=== PATIENT | female | born 1990 | race Caucasian/White ===

== ENCOUNTER 2018-05-03 06:07 | Inpatient (IN) ==
[2018-05-03] MEDS ORDERED: OXYTOCIN/DEXTROSE 5%-WATER 30 UNITS/500 ML BAG IV ONE ×2 (06:12→16:50)
[2018-05-03] MEDS ORDERED: NALBUPHINE HCL 10 MG/ML AMPUL IV PRN ×2 (06:12)
[2018-05-03] MEDS ORDERED: LIDOCAINE HCL 50 ML VIAL PERI PRN (06:12)
[2018-05-03] MEDS ORDERED: RINGER'S SOLUTION,LACTATED 1,000 ML IV ONE (06:12)
[2018-05-03] MEDS ORDERED: ONDANSETRON HCL/PF 2 MG/ML VIAL IV PRN ×2 (06:12→10:33)
[2018-05-03] MEDS: RINGER'S SOLUTION,LACTATED 1,000 ML IV PRN ×2 (06:45→16:05)
[2018-05-03 07:04] LABS: Cocaine Ur Negative (NEGATIVE); Urine Barbiturate Negative (NEGATIVE); Urine Benzodiazepines Negative (NEGATIVE); Urine Opiates Negative (NEGATIVE); Urine PCP Negative (NEGATIVE); Urine THC Negative (NEGATIVE)
--- NOTE | 2018-05-03 07:47 | HP ---
Chief Complaint - Chief Complaint Date of Service: 05/03/18 Time of Service: 07:39 Chief Complaint: Pt presents for induction of labor History of Present Illness: The patient presents for an elective IOL. Pt denies vb, lof. She reports irregular ctx. Fetus is active. Medical History (Last Reviewed 02/22/18 @ 10:49 by Arina Luna) Tobacco abuse (Chronic) and not yet delivered (Acute) Onset Date: 08/02/17 delivery Onset Date: 11/15/11 Surgical History: Surgical History (Last Reviewed 02/22/18 @ 10:49 by Arina Luna) History of dilatation and curettage Onset Date: 2006 Family History: Family History (Last Reviewed 02/22/18 @ 10:49 by Arina Luna) Brother Alive and well Father Cardiovascular disease Grandmother Cancer Lung Mother Emphysema of lung Sister Alive and well X4 Social History: Preferred Language Surinamese Psych History No pertinent hx (Last Updated 04/27/18 @ 11:16 by Shena Calvillo MD) No Social History Section defined Review Of Systems (GEN) - Review of Systems Misc: All systems neg except as marked Immunizations: IMMUNIZATION HX Immunizations Up to Date Yes History of Influenza Vaccine No Hx Pneumococcal Vaccination No Allergies/Adverse Reactions: Allergies Allergy/AdvReac Type Severity Reaction Status Date / Time No Known Allergies Allergy Verified 04/27/18 11:02 Home Medications: HOME MEDICATIONS [id number]/Iron Fumarate/FA/Dss [ 19 Tablet] 1 ea PO DAILY 11/19/17 [Last Taken 05/02/18 08:00] acetaminophen 500 mg tablet 500 mg PO Q6H PRN 11/24/17 [Last Taken Unknown] Albuterol Sulfate [Ventolin Hfa] 1 puff IH Q4H PRN #1 hfa.aer.ad 02/02/18 [Last Taken Unknown] ranitidine 150 mg capsule 150 mg PO DAILY 03/22/18 [Last Taken 05/02/18 08:00] sertraline 100 mg tablet 100 mg PO DAILY #30 tab 04/12/18 [Last Taken 05/02/18 08:00] Exam - Exam Vital Signs: Vital Signs - Last Taken Temp 36.9 C 05/03/18 06:44 Pulse 108 H 05/03/18 06:44 Resp 18 05/03/18 06:44 BP 101/70 05/03/18 06:44 Pulse Ox 98 05/03/18 06:44 Constitutional: Present: Alert, Oriented x3, Cooperative, No distress Respiratory: Present: lungs clear, normal breath sounds Cardiovascular/Chest: Present: regular rate, rhythm, no murmur Abdomen: Present: soft, nontender, nondistended Extremity: Present: non-tender, no calf tenderness Skin Exam: Present: normal color, warm/dry, no cyanosis Appearance: Present: appropriate appearance Eye contact: Present: cooperative Thoughts: Present: normal thought pattern Diagnostic Studies: Laboratory Results Urine Opiates Screen Negative (NEGATIVE) 05/03/18 06:15 Barbiturate Screen Negative (NEGATIVE) 05/03/18 06:15 Ur Phencyclidine Scrn Negative (NEGATIVE) 05/03/18 06:15 Urine Amphetamine Negative (NEGATIVE) 05/03/18 06:15 U Benzodiazepines Scrn Negative (NEGATIVE) 05/03/18 06:15 Urine Cocaine Screen Negative (NEGATIVE) 05/03/18 06:15 Urine Marijuana (THC) Negative (NEGATIVE) 05/03/18 06:15 Blood Type A Positive 05/03/18 06:12 Antibody Screen Negative 05/03/18 06:12 Assessment/Plan - Narrative Narrative: 28 yo @ 39w 1d who presents to L&D for an elective IOL Pitocin for labor induction, AROM for clear fluid History of THC use this : UDS negative on admission to L&D Tobacco use: pt has decreased her tobacco use GBS negative: prophylaxis not indicated Fetus is cat 1
[2018-05-03] MEDS ORDERED: BUPIVACAINE HCL/0.9 % NACL/PF 250 ML EP PRN (10:33)
[2018-05-03] MEDS ORDERED: NALOXONE HCL 1 MG/1 ML SYRG IV PRN (10:33)
[2018-05-03] MEDS ORDERED: fentaNYL CITRATE/PF 50 MCG/ML AMPUL IT SCH (10:45)
--- NOTE | 2018-05-03 10:49 | ANES ---
Anesthesia Pre Procedure Eval Vitals/Labs: Last Vital Signs Temp 36.9 C 05/03/18 06:44 Pulse 108 H 05/03/18 06:44 Resp 18 05/03/18 06:44 BP 101/70 05/03/18 06:44 Pulse Ox 98 05/03/18 06:44 HOME MEDICATIONS [id number]/Iron Fumarate/FA/Dss [ 19 Tablet] 1 ea PO DAILY 11/19/17 [Last Taken 05/02/18 08:00] acetaminophen 500 mg tablet 500 mg PO Q6H PRN 11/24/17 [Last Taken Unknown] RX: Albuterol Sulfate [Ventolin Hfa] 1 puff IH Q4H PRN #1 hfa.aer.ad 02/02/18 [Last Taken Unknown] ranitidine 150 mg capsule 150 mg PO DAILY 03/22/18 [Last Taken 05/02/18 08:00] sertraline 100 mg tablet 100 mg PO DAILY #30 tab 04/12/18 [Last Taken 05/02/18 08:00] Allergies/Adverse Reactions: Allergies Allergy/AdvReac Type Severity Reaction Status Date / Time No Known Allergies Allergy Verified 04/27/18 11:02 - Planned Procedure Planned Procedure: ELECTIVE INDUCTION Medication List Reviewed:: Yes Allergies Verified: Yes Medical History (Last Reviewed 05/03/18 @ 10:46 by Amandeep Welsh CRNA) Tobacco abuse (Chronic) and not yet delivered (Acute) Onset Date: 08/02/17 delivery Onset Date: 11/15/11 Surgical History (Last Reviewed 05/03/18 @ 10:47 by Amandeep Welsh CRNA) History of dilatation and curettage Onset Date: 2006 Family History (Last Reviewed 05/03/18 @ 10:47 by Amandeep Welsh CRNA) Brother Alive and well Father Cardiovascular disease Grandmother Cancer Lung Mother Emphysema of lung Sister Alive and well X4 - Family Anesthesia History Family History:: no untoward family reactions to anesthesia, no familial bleeding tendencies, no family history of clotting disorders, no family history of premature - Airway/Neck/Teeth Within Normal Limits:: Yes Teeth Condition: Intact Neck Exam: non-tender, full range of motion Mallampatti Score: 2 Thyromental (T-M) distance: > 6 cm Mandibulo Hyoid distance: > 3 cm - Respiratory Respiratory: chest non-tender, lungs clear Smoking Status: Current some day smoker Sleep Apnea currently treated: No Sleep Apnea by current assessment: No - Cardiovascular Patient History - Cardiac/Respiratory: No pertinent hx Tolerates Activity: Good Heart Sounds: S1 & S2 - Anesthesia Assessment and Plan ASA Class: PS, II Anesthesia Type Plan: Epidural
--- NOTE | 2018-05-03 11:07 | ANES ---
Post Anesthesia Discharge - Transfer of Care Transfer of Care handoff given to nurse: Yes - Discharge from PACU Discharge from PACU when meets criteria: Yes - Comfortable post CSE
--- NOTE | 2018-05-03 11:08 | ANES ---
Anesthesia Procedure Note Procedure Note: ANESTHESIA PROCEDURE NOTE Date of Procedure: 05/03/2018 Time of procedure: 1045. Performed by: Amandeep Welsh CRNA, MSN Saxophone Assembler: Alexia Schroeder RN. Preprocedure diagnosis: Active labor, labor pain. Post procedure diagnosis: Same. Procedure:Epidural for labor analgesia L3 4. Indications: Labor pain. Findings: See below. Details of the procedure: The patient was placed on the side of the bed in sitting positionand prepped with DuraPrep then draped in a sterile fashion. Lidocaine 1% was infiltrated to the skin and subcutaneous tissues at the level of the L3 4 interspace. An 18-gauge Touhy needle was used to approach the epidural space with loss of resistance technique. Once loss of resistance was achieved a 27-gauge spinal needle was passed through the epidural needle and CSF was contacted. After CSF returned, 20 mcg of fentanyl was injected in the spinal needle was removed the epidural catheter was then threaded approximately 4 cm in the epidural needle was removed. The catheter was taped in place and after careful aspiration 3 mL of 1.5% lidocaine with 1-200,000 epinephrine was injected without change in maternal heart rate or sensorium. . EBL: Minimal. Fluids: N/A. Specimen: N/A. Post procedure condition: The patient tolerated the procedure well with good re lief. No complications were noted. Thank you for this consultation. Amandeep Welsh CRNA, MSN
[2018-05-03] MEDS ORDERED: BISACODYL 10 MG SUPP.RECT RC PRN (16:50)
[2018-05-03] MEDS ORDERED: HYDROCORTISONE 30 APPL TUBE TP PRN (16:50)
[2018-05-03] MEDS ORDERED: BENZOCAINE/MENTHOL 81 SPRAY CAN TP PRN (16:50)
[2018-05-03] MEDS ORDERED: GLYCERIN/WITCH HAZEL LEAF 40 APPL BOX TP PRN (16:50)
[2018-05-03] MEDS ORDERED: HYDROcodone/ACETAMINOPHEN 1 EACH TABLET PO PRN ×2 (16:50)
[2018-05-03] MEDS ORDERED: SENNOSIDES 8.6 MG TABLET PO PRN (16:50)
[2018-05-03] MEDS ORDERED: diphenhydrAMINE HCL 25 MG CAPSULE PO PRN (16:50)
--- NOTE | 2018-05-03 16:59 | OR ---
Operative Report - Dictated Report Narrative: Date of delivery: 05/03/2018 Time of delivery: 1637 Gender: female weight: 2785 grams APGARS: 9/9 The patient is a 28 yo @ 39w 1d who presented to labor and delivery for an elective induction of labor. She received pitocin and was augmented with AROM. She progressed to complete dilation. The patient delivered in CARLOS presentation and the right hand delivered after the head. The rest of the body was delivered atraumatically. Cord clamping was delayed for 60 seconds. The placenta was delivered by expression and appeared intact. Bilateral labial lacerations were noted and these were hemostatic so they were not repaired. EBL: 100 mL Lacerations: bilateral labial, not repaired Complications: none Definition: * The number of deliveries resulting in a live the patient experienced prior to current hospitalization * The previous delivery of live twins or any live multiple gestation is considered one live event. *If primagravida or nulliparous is documented select zero for the number of previous live births. Live births: 3
[2018-05-03] MEDS: DOCUSATE SODIUM 100 MG CAPSULE PO SCH (20:29)
[2018-05-03] MEDS: IBUPROFEN 800 MG TABLET PO PRN (20:29)
--- NOTE | 2018-05-04 08:17 | PN ---
Subjective - Date and Time Seen Date: 05/04/18 Time: 08:16 Subjective Narrative: Pt without complaints. VB has slowed down a lot Objective Objective Narrative: See vital signs - Review of Systems Generalized/Overall Review: Reports: No Symptoms Reported Misc: All systems neg except as marked - Vitals Vitals: Last Vital Signs Temp 36.7 C 05/04/18 06:38 Pulse 71 05/04/18 06:38 Resp 16 05/04/18 06:38 BP 108/58 05/04/18 06:38 Pulse Ox 96 05/04/18 06:38 - Exam Constitutional: Present: Alert, Oriented x3, Cooperative, No distress Abdomen: Present: soft, nontender, nondistended Extremity: Present: non-tender, no calf tenderness, pedal edema Skin Exam: Present: normal color, warm/dry, no cyanosis Appearance: Present: appropriate appearance Eye contact: Present: cooperative Thoughts: Present: normal thought pattern Cauti Physician Documentation - Urinary Catheter Management Urethral (Kumar) Urethral Indwelling: No Date of Insertion: 05/03/18 Time of Insertion: 11:15 Assessment/Plan Plan Narrative: PPD 1 s/p Doing well Discharge tomorrow
[2018-05-04] MEDS: DOCUSATE SODIUM 100 MG CAPSULE PO SCH ×2 (13:20→21:49)
[2018-05-04] MEDS: IBUPROFEN 800 MG TABLET PO PRN (19:19)
[2018-05-05 07:29] VITALS: BP 110/68
--- NOTE | 2018-05-05 08:13 | PN ---
Subjective - Date and Time Seen Date: 05/05/18 Time: 08:12 Subjective Narrative: Pt without complaints. VB has slowed down a lot Objective Objective Narrative: See vital signs - Review of Systems Generalized/Overall Review: Reports: No Symptoms Reported Misc: All systems neg except as marked - Vitals Vitals: Last Vital Signs Temp 36.6 C 05/05/18 06:30 Pulse 64 05/05/18 06:30 Resp 20 05/05/18 06:30 BP 110/68 05/05/18 06:30 Pulse Ox 97 05/05/18 06:30 - Exam Constitutional: Present: Alert, Oriented x3, Cooperative, No distress Abdomen: Present: soft, nontender, nondistended - fundus is firm Extremity: Present: non-tender, no calf tenderness, pedal edema Skin Exam: Present: normal color, warm/dry, no cyanosis Appearance: Present: appropriate appearance Eye contact: Present: cooperative Thoughts: Present: normal thought pattern Cauti Physician Documentation - Urinary Catheter Management Urethral (Kumar) Urethral Indwelling: No Date of Insertion: 05/03/18 Time of Insertion: 11:15 Assessment/Plan Plan Narrative: PPD 2 s/p Doing well Discharge today
[2018-05-05] MEDS: DOCUSATE SODIUM 100 MG CAPSULE PO SCH (08:50)
== END 2018-05-05 13:30 | disposition home or self-care (01) | DRG 807 ==
LOC: OB 06:07
PROVIDERS: ADMIT Obstetrics & Gynecology; ATTEND Obstetrics & Gynecology
CPT/HCPCS: 59025; 80307; 86850; 86900; G0479